=== PATIENT | female | born 1990 | race American Indian/Alaskan Native ===

== ENCOUNTER 2020-10-31 21:35 | Emergency (ER) | payer MEDICAID ==
--- NOTE | 2020-10-31 22:07 | EDM.PDOC ---
ED HPI GENERAL MEDICAL PROBLEM - General Chief Complaint: ENT Problem Stated Complaint: BOTTOM LEFT MOLAR INFECTED Time Seen by Provider: 10/31/20 22:06 Source of Information: Reports: Patient History Limitations: Reports: No Limitations - History of Present Illness INITIAL COMMENTS - FREE TEXT/NARRATIVE: Patient comes emergency department today with complaints of a dental infection. This patient has a tooth that broke off a couple of days ago very low posterior aspect of the left lower jaw. She tried to get into the dentist today because she has increased pain and swelling on her left jaw but she was unable to. She is going to see the dentist tomorrow. She has increased pain and swelling on the left side of her cheek. No difficulty swallowing. No trismus. No fever no chills Left Lower Gums Pain Score (Numeric/FACES): 8 - Related Data Allergies Allergy/AdvReac Type Severity Reaction Status Date / Time No Known Allergies Allergy Verified 10/31/20 21:45 Home Meds: Home Meds . [No Known Home Meds] 10/31/20 [History] Past Medical History - Past Health History Medical/Surgical History: Denies Medical/Surgical History Genitourinary History: Reports: UTI, Recurrent SWIMMING [employer]CTOR History: Reports: , Spontaneous , Other (See Below) Other SWIMMING [employer]CTOR History: abnormal pap smear Psychiatric History: Reports: Anxiety, Depression Endocrine/Metabolic History: Reports: Diabetes, Type II Hematologic History: Reports: Anemia - Infectious Disease History Infectious Disease History: Reports: C-Difficile, Novel Coronavirus - Past Surgical History HEENT Surgical History: Reports: Oral Surgery Female Surgical History: Reports: Section, Other (See Below) Other Female Surgeries/Procedures: X4 Social & Family History - Family History Family Medical History: No Pertinent Family History - Tobacco Use Tobacco Use Status *Q: Current Every Day Tobacco User Years of Tobacco use: 19 Packs/Tins Daily: 0.1 Second Hand Smoke Exposure: Yes - Caffeine Use Caffeine Use: Reports: Coffee - Recreational Drug Use Recreational Drug Use: Yes Drug Use in Last 12 Months: Yes Recreational Drug Type: Reports: Marijuana/Hashish ED ROS ENT - Review of Systems Review Of Systems: Comprehensive ROS is negative, except as noted in HPI. ED EXAM, ENT - Physical Exam Exam: See Below Exam Limited By: No Limitations General Appearance: Alert, WD/WN, No Apparent Distress Eye Exam: Bilateral Eye: EOMI, PERRL Ears: Normal External Exam, Normal Canal, Hearing Grossly Normal, Normal TMs Nose: Normal Inspection, Normal Mucousa Mouth/Throat: No: Normal Inspection (There is quite a bit of swelling on the lateral aspect of the face. As well as the lateral aspect of the gums in the left lower jaw along tooth #18 and 19. There is a broken off tooth 17 under the gumline. There is no sign of fluctuance or sign of abscess, is hard induration on the lateral aspect), Tonsillar Erythema, Tonsillar Exudates, Tonsillar Swelling, Trismus, Uvular Deviation, Uvular Edema Course - Vital Signs Last Recorded V/S: Last Vital Signs Temp 98.6 F 10/31/20 21:40 Pulse 109 H 10/31/20 22:36 Resp 18 10/31/20 22:36 BP 117/69 10/31/20 22:36 Pulse Ox 98 10/31/20 22:36 - Orders/Labs/Meds Meds: Medications Discontinued Medications Generic Name Dose Route Start Last Admin Trade Name Kishore PRN Reason Stop Dose Admin Amoxicillin 500 mg 10/31/20 22:28 10/31/20 22:30 Amoxicillin 500 Mg Cap PO 10/31/20 22:29 500 mg ONETIME ONE Administration Bupivacaine HCl 30 ml 10/31/20 22:10 10/31/20 22:29 Bupivacaine 0.5% 30 Ml Sdv INJECT 10/31/20 22:11 30 ml ONETIME ONE Administration Lidocaine/Epinephrine 20 ml 10/31/20 22:10 10/31/20 22:29 Lidocaine 1% With Epinephrine 1:100,000 20 Ml Mdv INJECT 10/31/20 22:11 20 ml ONETIME ONE Administration - Re-Assessments/Exams Free Text/Narrative Re-Assessment/Exam: 10/31/20 23:24 After verbal consent was obtained. Left lower inferior alveolar block. 1% lidocaine with epinephrine and 0.5% bupivacaine was mixed in a 50-50 fashion. After the landmarks were identified in the left lower jaw for an inferior alveolar block. 6 mils of the above solution was injected at that site with almost 95% reduction of the patient's pain. I again palpated along the medial and lateral aspect of the mandible and there is no signs of fluctuance concernin g for abscess. She was given a dose of amoxicillin in the emergency department and prescription for this as well. She is to see her dentist tomorrow. She is comfortable with this plan and her questions were answered Departure - Departure Time of Disposition: 22:28 Disposition: Home, Self-Care 01 Clinical Impression: Dental infection - Discharge Information Instructions: Dental Abscess, [id number] Referrals: PCP,None [Primary Care Provider] - Forms: ED Department Discharge Additional Instructions: Tylenol and or Ibuprofen as needed for pain. Make sure and drink plenty of fluids Mouth wash 4 times a day. Amoxicillin 1 capsule twice daily for the next 5 days. RX given to the patient. See a dentist tomorrow as planned. Return to the ED if new or worsening symptoms. Sepsis Event Note (ED) - Evaluation Sepsis Screening Result: No Definite Risk - Focused Exam Vital Signs: Vital Signs Temp Pulse Resp BP Pulse Ox 10/31/20 22:36 109 H 18 117/69 98 10/31/20 21:40 98.6 F 88 18 119/76 96
[2020-10-31] MEDS ORDERED: Lidocaine 1% with EPINEPHrine 1:100,000 20 ML MDV INJECT ONE (22:10)
[2020-10-31] MEDS ORDERED: Bupivacaine 0.5% 30 ML SDV INJECT ONE (22:10)
[2020-10-31] MEDS ORDERED: Amoxicillin 500 MG Cap PO ONE (22:28)
[2020-10-31 22:37] VITALS: BP 117/69; PULSE 109
== END 2020-10-31 22:37 | disposition home or self-care (01) ==
LOC: DL.ED 21:35
DX: K04.7 Periapical abscess without sinus (principal); E11.9 Type 2 diabetes mellitus without complications; Z72.0 Tobacco use
CPT/HCPCS: 64400; 99283; 99283-25; A9270-GY; J3490